=== PATIENT | male | born 1980 | race Caucasian/White ===

== ENCOUNTER 2017-01-31 18:40 | Emergency (ER) | payer OTHER ==
[~2017-01-31] VITALS: Ht 172.7 cm; Wt 87.8 kg
[2017-01-31 18:42] VITALS: BP 135/72
[2017-01-31] MEDS ORDERED: IBUP-1022 PO (19:11)
[2017-01-31] MEDS ORDERED: NYST1POW9 TOP (19:11)
[2017-01-31] MEDS ORDERED: CLEO300C2 PO (19:11)
[2017-01-31] MEDS ORDERED: IBUPROFEN 600 MG TAB PO ONE (19:15)
[2017-01-31] MEDS ORDERED: CLINDAMYCIN 150 MG CAP PO ONE (19:15)
== END 2017-01-31 19:32 | disposition home or self-care (01) ==
LOC: M ED 18:40
DX: L03.032 Cellulitis of left toe (principal)

== ENCOUNTER → 2022-06-26 | Outpatient (CLI) | payer OTHER ==
[~2022-06-26] MED LIST: CLEO300C2 PO; IBUP-1022 PO; NYST1POW9 TOP
[2022-06-26 10:03] LABS: PLATELET COUNT, AUTOMATED 233 10^3/uL (150-450)
[2022-06-26 10:17] LABS: INR 0.93; PROTHROMBIN TIME 12.7 SECONDS (12.5-14.5)
[2022-06-26 10:18] LABS: PARTIAL THROMBOPLASTIN TIME 24.7 SECONDS (24.8-34.2)
[2022-06-26 10:22] LABS: COLLAGEN EPINEPHRINE 116 SECONDS (74-162)
== END ==
LOC: M PLALAB 08:48
PROVIDERS: ATTEND Orthopaedic Surgery
DX: M51.37 Other intervertebral disc degeneration, lumbosacral region (principal)

== ENCOUNTER 2024-05-30 14:09 | Emergency (ER) | payer OTHER ==
[~2024-05-30] VITALS: Ht 172.7 cm; Wt 97.4 kg
[2024-05-30] MEDS: LIDOCAINE 1% MDV 20ML VIAL SC ONE (17:00)
[2024-05-30] MEDS: BOOSTRIX VACCINE (TETANUS/DIPHTH/ACEL. PERTUSSIS) 0.5ML SYR IM.IMMUN ONE (17:07)
[2024-05-30] MEDS: BACITRACIN OINTMENT 30GM TUBE TOP ONE (17:39)
[2024-05-30 17:47] VITALS: BP 135/86; TEMP 97.2; O2SAT 99
== END 2024-05-30 17:48 | disposition home or self-care (01) ==
LOC: M ED 14:09
DX: S61.011A Laceration without foreign body of right thumb without damage to nail, initial encounter (principal); W26.8XXA Contact with other sharp object(s), not elsewhere classified, initial encounter; Y92.9 Unspecified place or not applicable; Y93.89 Activity, other specified; Y99.0 Civilian activity done for income or pay; Z23 Encounter for immunization

== ENCOUNTER 2024-06-07 07:55 | Emergency (ER) | payer OTHER ==
[~2024-06-07] VITALS: Ht 175.3 cm; Wt 93.6 kg
[~2024-06-07 07:55] MED LIST changes: +NYST1POW3 TOP; -NYST1POW9 TOP
[2024-06-07 08:02] VITALS: BP 132/85; TEMP 97.6; O2SAT 99
[2024-06-07] MEDS ORDERED: IBUP200T46 PO (08:11)
== END 2024-06-07 08:48 | disposition home or self-care (01) ==
LOC: M ED 07:55
DX: Z48.02 Encounter for removal of sutures (principal)